=== PATIENT | male | born 1960 | race Caucasian/White ===

== ENCOUNTER → 2021-06-03 | Day surgery (SDC) | payer MEDICARE, OTHER ==
[~2021-06-03] MED LIST: AMITRIPTYLINE100 MG PO; CLONIDINE HCL0.2 MG PO; DILTIAZEM 24HR240 M1 PO; FUROSEMIDE40 MG PO; HYDRALAZINE HCL50 MG PO; NITROGLYCERIN0.4 MG SL; OXYCODONE HCL15 MG PO; PREGABALIN300 MG PO; PROTONIX 40 MG40 M1 PO
== END | disposition home or self-care (01) ==
LOC: OR 11:07
DX: M86.171 Other acute osteomyelitis, right ankle and foot (principal); M86.671 Other chronic osteomyelitis, right ankle and foot; M25.774 Osteophyte, right foot; L08.89 Other specified local infections of the skin and subcutaneous tissue; M79.671 Pain in right foot; L60.3 Nail dystrophy; M20.42 Other hammer toe(s) (acquired), left foot; M19.071 Primary osteoarthritis, right ankle and foot; M65.871 Other synovitis and tenosynovitis, right ankle and foot; L97.512 Non-pressure chronic ulcer of other part of right foot with fat layer exposed; M20.41 Other hammer toe(s) (acquired), right foot; L97.522 Non-pressure chronic ulcer of other part of left foot with fat layer exposed; Z79.01 Long term (current) use of anticoagulants; I10 Essential (primary) hypertension; Z95.5 Presence of coronary angioplasty implant and graft; Z96.649 Presence of unspecified artificial hip joint; Z96.659 Presence of unspecified artificial knee joint; F17.210 Nicotine dependence, cigarettes, uncomplicated; Z68.38 Body mass index [BMI] 38.0-38.9, adult; I25.2 Old myocardial infarction; E78.5 Hyperlipidemia, unspecified; J44.9 Chronic obstructive pulmonary disease, unspecified; K21.9 Gastro-esophageal reflux disease without esophagitis; E66.01 Morbid (severe) obesity due to excess calories; F31.9 Bipolar disorder, unspecified
CPT/HCPCS: 29515; 73630; 82962; 87070; 87077; 87186; 87205; 99283; J0690; J1100; J2250; J2405; J2704; J3010; J7030; J7120; Q4133